=== PATIENT | female | born 1960 | race Caucasian/White ===

== ENCOUNTER → 2018-03-02 | Outpatient (CLI) | payer OTHER | LOC: M.RAD 08:27 | DX: Z12.31 Encounter for screening mammogram for malignant neoplasm of breast (principal) ==

== ENCOUNTER → 2019-03-11 | Outpatient (CLI) | payer OTHER | LOC: M.RAD 08:10 | DX: Z12.31 Encounter for screening mammogram for malignant neoplasm of breast (principal) ==